=== PATIENT | female | born 1960 | race Caucasian/White ===

== ENCOUNTER 2017-06-15 23:02 | Emergency (ER) | payer SELFPAY ==
[2017-06-15] MEDS ORDERED: LIDOCAINE/EPINEPHR/TETRACAINE 5 ML BOTTLE TOPICAL ONE (23:38)
[2017-06-15 23:49] VITALS: BP 119/62; PULSE 78; TEMP 96.9
[2017-06-16 00:14] LABS: Basophils % (A) 0 %; CH 32.7; CHCM 33.9; Eosinophils # (A) 0.2 k/uL (0-0.7); Eosinophils % (A) 2 %; HCT 39.3 % (34.0-46.0); HDW 2.31; HGB 12.9 gm/dL (11.4-16.0); Luc # (Auto) 0.12; Luc % (Auto) 1; Lymphocytes % (A) 21 %; MCH 31.8 pg (25.0-35.0); MCHC 32.8 g/dL (31.0-37.0); Monocytes # (A) 0.5 k/uL (0-1.0); Monocytes % (A) 5 %; Neutrophils # (A) 6.9 k/uL (1.3-7.7); Neutrophils % (A) 71 %; RBC 4.05 m/uL (3.80-5.40); WBC 9.7 k/uL (3.8-10.6); WBC (Perox) 10.41
[2017-06-16 00:23] LABS: Partial Thromboplastin Time 23.2 sec (22.0-30.0); Prothrombin Time 10.5 sec (9.0-12.0)
[2017-06-16] MEDS ORDERED: SILVER NITRATE APPLICATOR 1 EACH STICK..EA. TOPICAL STA (00:41)
--- NOTE | 2017-06-16 00:54 | ED ---
ENT HPI - General Chief complaint: ENT Stated complaint: Nose Bleed Time Seen by Provider: 06/15/17 23:32 Source: patient Mode of arrival: ambulatory Limitations: no limitations - History of Present Illness Initial comments: This 57-year-old white female presents with a complaint of some epistaxis. She states that it initially occurred 2 days ago and then stopped.Then occurred shortly prior to arrival tonight. She states that she bled out quite a bit. It was from her right nostril. She denies any injuries or being on any blood thinners. She denies any lightheadedness or dizziness. She denies any previous history of nosebleeds. No other complaints or modifying factors. - Related Data Home Medications Medication Instructions Recorded Confirmed No Known Home Medications [No 01/26/15 06/15/17 Known Home Medications] Allergies Allergy/AdvReac Type Severity Reaction Status Date / Time No Known Allergies Allergy Verified 06/15/17 23:23 Review of Systems ROS Statement: Those systems with pertinent positive or pertinent negative responses have been documented in the HPI. ROS Other: All systems not noted in ROS Statement are negative. Past Medical History Past Medical History: No Reported History History of Any Multi-Drug Resistant Organisms: None Reported Additional Past Surgical History / Comment(s): LAPROSCOPIC SX Past Anesthesia/Blood Transfusion Reactions: No Reported Reaction Past Psychological History: No Psychological Hx Reported Smoking Status: Current every day smoker Past Alcohol Use History: None Reported Past Drug Use History: None Reported General Exam Limitations: no limitations Head exam: Present: atraumatic, normocephalic ENT exam: Present: normal oropharynx, mucous membranes moist, other (There is a large blood clot noted proximally in the right [place]. There is no acute bleeding noted in the anterior right nose. The left nose is clear. There is no blood down the posterior oropharynx. There is no acute bleeding currently.) Respiratory exam: Present: normal lung sounds bilaterally. Absent: respiratory distress Cardiovascular Exam: Present: regular rate, normal rhythm Psychiatric exam: Present: normal affect, normal mood Course Vital Signs 06/15/17 06/15/17 23:04 23:46 Temperature 98.6 F 96.9 F L Pulse Rate 108 H 78 Respiratory 20 16 Rate Blood Pressure 144/79 119/62 O2 Sat by Pulse 96 96 Oximetry Medical Decision Making - Medical Decision Making The patient was seen and examined. Some LET was applied to the bilateral nares. Upon removing the cotton swabs. Nose was thoroughly examined and no further bleeding is noted. There are no vessels that appear to be friable or require silver nitrate cauterization. The bleeding has stopped. She is offered a packing to her right nose versus leaving it alone at this time. She would prefer to avoid the packing at this time if possible. Return parameters are discussed. She is instructed to follow-up with ENT if further bleeding does occur and return immediately if severe. Her blood count is stable. - Lab Data Result diagrams: 06/16/17 00:00 Lab Results 06/16/17 06/16/17 Range/Units 00:00 00:00 WBC 9.7 (3.8-10.6) k/uL RBC 4.05 (3.80-5.40) m/uL Hgb 12.9 (11.4-16.0) gm/dL Hct 39.3 (34.0-46.0) % MCV 97.0 (80.0-100.0) fL MCH 31.8 (25.0-35.0) pg MCHC 32.8 (31.0-37.0) g/dL RDW 14.0 (11.5-15.5) % Plt Count 251 (150-450) k/uL Neutrophils % 71 % Lymphocytes % 21 % Monocytes % 5 % Eosinophils % 2 % Basophils % 0 % Neutrophils # 6.9 (1.3-7.7) k/uL Lymphocytes # 2.0 (1.0-4.8) k/uL Monocytes # 0.5 (0-1.0) k/uL Eosinophils # 0.2 (0-0.7) k/uL Basophils # 0.0 (0-0.2) k/uL PT 10.5 (9.0-12.0) sec INR 1.0 (<1.2) APTT 23.2 (22.0-30.0) sec Disposition Clinical Impression: Epistaxis Disposition: HOME SELF-CARE Condition: Good Instructions: Nosebleed (ED) Referrals: Luna Desai MD [Primary Care Provider] - 1-2 days Yovanny Dudley DO [Doctor of Osteopathic Medicine] - 06/19/17 Time of Disposition: 00:54
[2017-06-16 01:03] VITALS: RESP 20
== END 2017-06-16 01:03 | disposition home or self-care (01) ==
LOC: EC 23:02
DX: R04.0 Epistaxis (principal); F17.200 Nicotine dependence, unspecified, uncomplicated
CPT/HCPCS: 36415; 85025; 85610; 85730; 99283